=== PATIENT | male | born 1940 | race Caucasian/White ===

== ENCOUNTER 2018-01-09 09:27 | Inpatient (IN) | payer OTHER ==
[~2018-01-09] VITALS: Ht 167.6 cm; Wt 72.6 kg
[2018-01-23] MEDS ORDERED: TYLENOL ARTHRI650 MG PO (09:16)
[2018-01-23] MEDS ORDERED: INTESTINEX680 M1 PO (09:16)
== END 2018-01-23 10:46 | disposition home or self-care (01) | DRG 330 ==
LOC: O/R 01-15 08:37 → SURH 01-15 08:37
PROVIDERS: Colon & Rectal Surgery
PROC: 07TC4ZZ Resection of Pelvis Lymphatic, Percutaneous Endoscopic Approach (ICD-10-PCS; 2018-01-15)
PROC: 0DBU4ZZ Excision of Omentum, Percutaneous Endoscopic Approach (ICD-10-PCS; 2018-01-15)
PROC: 0DTF4ZZ Resection of Right Large Intestine, Percutaneous Endoscopic Approach (ICD-10-PCS; principal; 2018-01-15 18:30)
PROC: 4A033R1 Measurement of Arterial Saturation, Peripheral, Percutaneous Approach (ICD-10-PCS; 2018-01-18)
DX: C18.2 Malignant neoplasm of ascending colon (principal); K56.0 Paralytic ileus; K91.89 Other postprocedural complications and disorders of digestive system; I11.9 Hypertensive heart disease without heart failure; R09.02 Hypoxemia

== ENCOUNTER 2019-01-31 06:55 | Day surgery (SDC) | payer OTHER ==
[~2019-01-31 06:55] MED LIST: INTESTINEX680 M1 PO; TYLENOL ARTHRI650 MG PO
== END 2019-01-31 12:25 | disposition home or self-care (01) ==
LOC: AMB-ENDOS 06:55
DX: K64.1 Second degree hemorrhoids (principal)